=== PATIENT | female | born 1950 | race Native Hawaiian/Other Pacific Islander ===

== ENCOUNTER 2017-03-26 13:46 | Outpatient (CLI) | payer OTHER ==
[2017-03-26 14:08] LABS: PLATELET COUNT 253 K/uL (152-353)
[2017-03-26 14:28] LABS: POTASSIUM 4.1 mmol/L (3.6-5.2); SODIUM 138 mmol/L (136-145)
== END 2017-03-26 14:50 | disposition home or self-care (01) ==
LOC: LAB 13:46
PROVIDERS: Internal Medicine
DX: E78.00 Pure hypercholesterolemia, unspecified (principal); Z79.899 Other long term (current) drug therapy; Z51.81 Encounter for therapeutic drug level monitoring
CPT/HCPCS: 80053; 80061; 81000; 83735; 84443; 85027; 87088

== ENCOUNTER 2018-07-02 08:51 | Outpatient (CLI) | payer OTHER | END 2018-07-02 22:37 | disposition home or self-care (01) | LOC: CT 08:51 | DX: R10.30 Lower abdominal pain, unspecified (principal) | CPT/HCPCS: 36415; 82565; 84520; Q9963 ==

== ENCOUNTER 2018-08-12 08:04 | Outpatient (CLI) | payer OTHER ==
[2018-08-12 08:16] LABS: PLATELET COUNT 230 K/uL (152-353)
[2018-08-12 08:29] LABS: POTASSIUM 4.1 mmol/L (3.6-5.2)
== END 2018-08-12 19:09 | disposition home or self-care (01) ==
LOC: LABW 08:04
PROVIDERS: Internal Medicine
DX: R19.7 Diarrhea, unspecified (principal)
CPT/HCPCS: 36415; 80053; 83735; 85027

== ENCOUNTER 2018-10-13 10:13 | Outpatient (CLI) | payer OTHER | END 2018-10-13 20:04 | disposition home or self-care (01) | LOC: MRI 10:13 | DX: R51 Headache (principal) ==

== ENCOUNTER 2020-05-08 10:47 | Outpatient (CLI) | payer OTHER | END 2020-05-08 21:57 | disposition home or self-care (01) | LOC: MRI 10:47 | PROVIDERS: ATTEND Specialist | DX: M54.2 Cervicalgia (principal); M54.81 Occipital neuralgia ==

== ENCOUNTER 2021-01-08 09:17 | Outpatient (CLI) | payer BC ==
[2021-01-08 09:39] LABS: POTASSIUM 4.2 mmol/L (3.6-5.2)
== END 2021-01-08 21:20 | disposition home or self-care (01) ==
LOC: LABW 09:17
PROVIDERS: ATTEND Internal Medicine Cardiovascular Disease
DX: E78.49 Other hyperlipidemia (principal)
CPT/HCPCS: 36415; 80053; 80061

== ENCOUNTER 2021-04-22 09:36 | Outpatient (CLI) | payer BC, OTHER | END 2021-04-22 21:00 | disposition home or self-care (01) | LOC: LAB 09:36 | PROVIDERS: ATTEND Internal Medicine | DX: R50.9 Fever, unspecified (principal); J02.9 Acute pharyngitis, unspecified; R09.81 Nasal congestion; Z11.52 Encounter for screening for COVID-19 | CPT/HCPCS: 87635; G2023; U0003 ==

== ENCOUNTER 2021-04-23 12:37 | Outpatient (CLI) | payer BC, OTHER | END 2021-04-23 19:06 | disposition home or self-care (01) | LOC: RAD 12:37 | PROVIDERS: ATTEND Internal Medicine | DX: J40 Bronchitis, not specified as acute or chronic (principal) ==

== ENCOUNTER 2021-05-27 08:48 | Outpatient (CLI) | payer BC ==
[2021-05-27 09:08] LABS: PLATELET COUNT 216 K/uL (152-353)
[2021-05-27 09:29] LABS: POTASSIUM 3.9 mmol/L (3.6-5.2)
== END 2021-05-27 18:49 | disposition home or self-care (01) ==
LOC: LABW 08:48
PROVIDERS: ATTEND Internal Medicine
DX: I10 Essential (primary) hypertension (principal)
CPT/HCPCS: 36415; 80053; 80061; 81000; 84439; 84443; 85027

== ENCOUNTER 2022-09-11 08:28 | Outpatient (CLI) | payer BC ==
[2022-09-11 08:56] LABS: PLATELET COUNT 227 K/uL (152-353)
== END 2022-09-11 17:00 | disposition home or self-care (01) ==
LOC: LABW 08:28
PROVIDERS: ATTEND Internal Medicine
DX: I10 Essential (primary) hypertension (principal); R82.998 Other abnormal findings in urine
CPT/HCPCS: 36415; 80053; 80061; 81000; 84439; 84443; 85027; 87088

== ENCOUNTER 2023-03-11 08:16 | Outpatient (CLI) | payer BC | END 2023-03-11 19:56 | disposition home or self-care (01) | LOC: MRI 08:16 | PROVIDERS: ATTEND Psychiatry & Neurology Neurology | DX: R51.9 Headache, unspecified (principal); D18.02 Hemangioma of intracranial structures | CPT/HCPCS: 36415; 82565; 84520; A9576 ==